=== PATIENT | female | born 1995 | race American Indian/Alaskan Native ===

== ENCOUNTER 2021-02-07 09:08 | Emergency (ER) | payer MEDICAID ==
[2021-02-07 09:23] VITALS: BP 111/63
--- NOTE | 2021-02-07 10:57 | Emergency Department Report ---
Chief Complaint: Seizure Stated Complaint: SEIZURE MEDS NEEDED Time Seen by Provider: 02/07/21 10:52 - HPI History of Present Illness: 25-year-old female patient with history of seizure disorder presents to the emergency department with her mother requesting medication refill. Mother states that patient has been out of her seizure medications for a few weeks. She has tried to schedule an appointment with the patient's physician, but their office has been closed. Next available appointment is February 15. She is requesting prescriptions for the patient's seizure medications until the next scheduled appointment. 2 days ago, patient did experience a breakthrough se izure. This seizure was witnessed by mother and was consistent with prior seizures. No additional predisposing factors, such as trauma/infection/substance abuse, identified by mother. Patient has not exhibited any seizure activity in the last 24 hours. She is currently asymptomatic without complaints. Patient is hard of hearing at baseline; history obtained from mother. - Exam Vital Signs: Vital Signs 02/07/21 09:13 Temperature 99.1 F Respiratory 18 Rate Blood Pressure 111/63 [Right] O2 Sat by Pulse 100 Oximetry MSE screening note: Focused history and physical exam performed. Due to findings the following was ordered: ED Disposition for MSE Clinical Impression: Medication refill, History of seizure disorder Disposition: DC-01 TO HOME OR SELFCARE Is pt being admited?: No Does the pt Need Aspirin: No Condition: Stable Instructions: Seizure, Adult Additional Instructions: Take medications as previously prescribed. Follow-up with your physician as scheduled. Return to the emergency department immediately for new or worsening symptoms. Prescriptions: lamoTRIgine [LaMICtal Odt] 200 mg PO BID 14 Days tab Zonisamide 300 mg PO QAM #14 capsule Referrals: ASHTYN JOYCE MD [Staff Physician] - 3-5 Days Time of Disposition: 10:57
--- NOTE | 2021-02-07 11:44 | Emergency Department Report ---
ED General Adult HPI - General Chief complaint: Seizure Stated complaint: SEIZURE MEDS NEEDED Time Seen by Provider: 02/07/21 10:52 Source: patient, family Mode of arrival: Ambulatory Limitations: No Limitations - History of Present Illness Initial comments: 25-year-old female patient with history of seizure disorder presents to the emergency department with her mother requesting medication refill. Mother states that patient has been out of her seizure medications for a few weeks. She has tried to schedule an appointment with the patient's physician, but their office has been closed. Next available appointment is February 15. She is requesting prescriptions for the patient's seizure medications until the next scheduled appointment. 2 days ago, patient did experience a breakthrough seizure. This seizure was witnessed by mother and was consistent with prior seizures. No additional predisposing factors, such as trauma/infection/substance abuse, identified by mother. Patient has not exhibited any seizure activity in the last 24 hours. She is currently asymptomatic without complaints. Patient is hard of hearing at baseline; history obtained from mother. - Related Data Previous Rx's Medication Instructions Recorded Last Taken Type Butalb/Acetamin/Caff 50-325-40 1 each PO Q4H PRN #20 tablet 01/07/15 Unknown Rx [Fioricet] Zonisamide 300 mg PO QAM #14 capsule 02/07/21 Unknown Rx lamoTRIgine [LaMICtal Odt] 200 mg PO BID 14 Days tab 02/07/21 Unknown Rx Allergies Allergy/AdvReac Type Severity Reaction Status Date / Time No Known Allergies Allergy Verified 01/07/15 10:18 ED Review of Systems ROS: Stated complaint: SEIZURE MEDS NEEDED Other details as noted in HPI Other: Further review of systems limited secondary to patient's baseline deafness. See HPI for details. ED Past Medical Hx - Past Medical History Previous Medical History?: Yes Hx Seizures: Yes Additional medical history: HEARING IMPAIRED/DEAF. MENINGITIS - Surgical History Past Surgical History?: No - Social History Smoking Status: Never Smoker Substance Use Type: None - Medications Home Medications: Home Medications Medication Instructions Recorded Confirmed Last Taken Type Butalb/Acetamin/Caff 50-325-40 1 each PO Q4H PRN #20 tablet 01/07/15 Unknown Rx [Fioricet] Zonisamide 300 mg PO QAM #14 capsule 02/07/21 Unknown Rx lamoTRIgine [LaMICtal Odt] 200 mg PO BID 14 Days tab 02/07/21 Unknown Rx ED Physical Exam - General Limitations: No Limitations - Other Other exam information: General: Awake, appropriately interactive, no acute distress. Neck: Supple. Full range of motion intact. Cardiovascular: Normal peripheral perfusion. Pulmonary: No respiratory distress. Skin: No apparent rashes or lesions. Neurological: No facial asymmetry. Follows commands. Patient is alert and awake. Ambulatory without assistance. Musculoskeletal: Moves all four extremities spontaneously with normal range of motion. Psych: Cooperative. Appropriate mood and affect. ED Course Vital Signs 02/07/21 09:13 Temperature 99.1 F Respiratory 18 Rate Blood Pressure 111/63 [Right] O2 Sat by Pulse 100 Oximetry ED Medical Decision Making - Medical Decision Making Patient presents to the emergency department with her mother requesting medication refill. Mother states that the patient is currently at her baseline mental status and she has no further clinical concerns beyond having these medications refilled. She is afebrile, vital signs are stable, neurological exam is nonfocal. No seizure activity in last 24 hours. No clinical indication for further diagnostic work-up on an emergent basis. Mother has already arranged for close outpatient follow-up. She has brought the names and doses of the seizure medications with her. These prescriptions will be refilled with the understanding that they must follow-up with their regular physician as scheduled next week. Mother expressed understanding and is agreeable to plan of care. Strict return precautions provided. Critical care attestation.: If time is entered above; I have spent that time in minutes in the direct care of this critically ill patient, excluding procedure time. ED Disposition Clinical Impression: Medication refill, History of seizure disorder Disposition: DC-01 TO HOME OR SELFCARE Is pt being admited?: No Does the pt Need Aspirin: No Condition: Stable Instructions: Seizure, Adult Additional Instructions: Take medications as previously prescribed. Follow-up with your physician as scheduled. Return to the emergency department immediately for new or worsening symptoms. Prescriptions: lamoTRIgine [LaMICtal Odt] 200 mg PO BID 14 Days tab Zonisamide 300 mg PO QAM #14 capsule Referrals: ASHTYN JOYCE MD [Staff Physician] - 3-5 Days
== END 2021-02-07 11:02 | disposition home or self-care (01) ==
LOC: ED 09:08
DX: G40.909 Epilepsy, unspecified, not intractable, without status epilepticus (principal); Z79.899 Other long term (current) drug therapy; Z86.69 Personal history of other diseases of the nervous system and sense organs; Z76.0 Encounter for issue of repeat prescription
CPT/HCPCS: 99282

== ENCOUNTER 2021-02-24 11:48 | Emergency (ER) | payer MEDICAID ==
[2021-02-24 12:36] VITALS: BP 103/58
--- NOTE | 2021-02-24 14:00 | Emergency Department Report ---
ED Recheck HPI - General Chief Complaint: Recheck/Abnormal Lab/Rx Stated Complaint: MED REFILL Time Seen by Provider: 02/24/21 13:37 Source: patient, family Mode of arrival: Ambulatory Limitations: Other - History of Present Illness Initial Comments: This is a 25-year-old female nontoxic, well nourished in appearance, no acute signs of distress presents to the ED for medication refill of seizure medications. Mother otherwise denies any history of recent seizures or any complaints or symptoms. Patient is nonverbal and is sign language. Patient stat ed otherwise she is stable. Patient is currently present with mother. Mother and patient denies any chest pain, shortness of breath, fever, chills, nausea, vomiting, neck or stiff neck. Mother stated that patient is seen by Dr. Morin which office has been relocated and it is unable to get a appointment and. Stated last dose was several days ago. MD Complaint: medication refill request -: days(s) Returns Today for: request for prescription Symptoms Since Prior Visit: no new symptoms Associated Symptoms: none. denies: fever, chills, chest pain, shortness of breath, rash, malaise, nasuea, abdominal pain - Related Data Previous Rx's Medication Instructions Recorded Last Taken Type Butalb/Acetamin/Caff 50-325-40 1 each PO Q4H PRN #20 tablet 01/07/15 Unknown Rx [Fioricet] Zonisamide 300 mg PO QAM #14 capsule 02/24/21 Unknown Rx lamoTRIgine [LaMICtal Odt] 200 mg PO BID 14 Days tab 02/24/21 Unknown Rx Allergies Allergy/AdvReac Type Severity Reaction Status Date / Time No Known Allergies Allergy Verified 02/24/21 12:32 ED Review of Systems ROS: Stated complaint: MED REFILL Other details as noted in HPI ROS completed with mother as translation due to sign language Comment: All other systems reviewed and negative Constitutional: denies: chills, fever Eyes: denies: eye pain, eye discharge, vision change ENT: denies: ear pain, throat pain Respiratory: denies: cough, shortness of breath, wheezing Cardiovascular: denies: chest pain, palpitations Endocrine: no symptoms reported Gastrointestinal: denies: abdominal pain, nausea, diarrhea Genitourinary: denies: urgency, dysuria, discharge Musculoskeletal: denies: back pain, joint swelling, arthralgia Skin: denies: rash, lesions Neurological: denies: headache, weakness, paresthesias Psychiatric: denies: anxiety, depression Hematological/Lymphatic: denies: easy bleeding, easy bruising ED Past Medical Hx - Past Medical History Hx Seizures: Yes Additional medical history: HEARING IMPAIRED/DEAF. MENINGITIS - Social History Smoking Status: Never Smoker Substance Use Type: None - Medications Home Medications: Home Medications Medication Instructions Recorded Confirmed Last Taken Type Butalb/Acetamin/Caff 50-325-40 1 each PO Q4H PRN #20 tablet 01/07/15 Unknown Rx [Fioricet] Zonisamide 300 mg PO QAM #14 capsule 02/24/21 Unknown Rx lamoTRIgine [LaMICtal Odt] 200 mg PO BID 14 Days tab 02/24/21 Unknown Rx ED Physical Exam - General Limitations: Other General appearance: alert, in no apparent distress - Head Head exam: Present: atraumatic, normocephalic - Eye Eye exam: Present: normal appearance, PERRL, EOMI - Neck Neck exam: Present: normal inspection, full ROM. Absent: lymphadenopathy - Respiratory Respiratory exam: Absent: respiratory distress - Cardiovascular Cardiovascular Exam: Present: regular rate - Extremities Exam Extremities exam: Present: full ROM - Back Exam Back exam: Present: full ROM - Neurological Exam Neurological exam: Present: alert, oriented X3, normal gait - Psychiatric Psychiatric exam: Present: normal affect, normal mood - Skin Skin exam: Present: warm, dry, intact, normal color. Absent: rash ED Course Vital Signs 02/24/21 02/24/21 12:32 12:35 Temperature 98.2 F Pulse Rate 92 H Respiratory 18 Rate Blood Pressure 103/58 [Right] O2 Sat by Pulse 100 Oximetry - Reevaluation(s) Reevaluation #1: 02/24/21 13:59 Patient is speaking in full sentences with no signs of distress noted. ED Recheck MDM - Medical Decision Making 25-year-old female that presents with medication refill. Patient is stable and was examined by me. I will refill patient's medication due to the nature of medication and needing for seizure activities. Mother has her empty bottles of Lamotrigine 200 mg BID and Zonisamide 300 mg daily. patient and mother was instructed to follow-up with a primary care doctor in 3-5 days or if symptoms worsen and continue return to emergency room as soon as possible. At time of discharge, the patient does not seem toxic or ill in appearance. No acute signs of distress noted. Patient agrees to discharge treatment plan of care. No further questions noted by the patient. Critical care attestation.: If time is entered above; I have spent that time in minutes in the direct care of this critically ill patient, excluding procedure time. ED Disposition Clinical Impression: Medication refill Disposition: TO HOME OR SELFCARE Is pt being admited?: No Does the pt Need Aspirin: No Condition: Stable Additional Instructions: Follow-up with a primary care doctor in 3-5 days or if symptoms worsen and continue return to emergency room as soon as possible. Prescriptions: lamoTRIgine [LaMICtal Odt] 200 mg PO BID 14 Days tab Zonisamide 300 mg PO QAM #14 capsule Referrals: PRIMARY MD MORIAH [Primary Care Provider] - 3-5 Days ASHTYN JOYCE MD [Staff Physician] - 3-5 Days Time of Disposition: 14:03
== END 2021-02-24 14:03 | disposition home or self-care (01) ==
LOC: ED 11:48
DX: R56.9 Unspecified convulsions (principal); Z76.0 Encounter for issue of repeat prescription; Z79.899 Other long term (current) drug therapy
CPT/HCPCS: 99282